=== PATIENT | female | born 1985 | race Caucasian/White ===

== ENCOUNTER 2020-06-14 20:41 | Inpatient (IN) | payer OTHER ==
[~2020-06-14] VITALS: Ht 172.7 cm; Wt 126.6 kg
--- NOTE | ~2020-06-14 | CON ---
[address] [address] CONSULTATION Name: JADA SILVESTRE Room: [address] IN .R.#: [id number] Admission: 06/14/20 Attend Phys: Ozzy Godinez MD Discharge: Date of : 87 Report #: [id number] THIS REPORT FOR: //name// cc: Jessica Higgins MD, Melissa MD ~ DATE OF SERVICE: 06/19/2020 REQUESTING PHYSICIAN: Dr. Ozzy Godinez INDICATION FOR CONSULTATION: COVID-19 with hypoxia. HISTORY OF PRESENT ILLNESS: A 34-year-old female. She is a lifetime nonsmoker. She does have a history of hypertension. She does have morbid obesity with a body mass index elevated to 58.6. It appears likely to me that she has previously undiagnosed obstructive sleep apnea. At this time, the patient is admitted with a fever. She is admitted with fevers. She was having headaches, coughing as well as increase in shortness of breath for 3 days. The patient also had diarrhea on initial presentation. On initial arrival, the patient was on 2 liters oxygen. This was quickly titrated down to room air; however, yesterday there was again an increase in oxygen needs and by last night the patient was requiring 4 liters of oxygen to maintain O2 saturation in the low 90s and therefore, I was consulted. The patient does report having had increase in shortness of breath as well as coughing yesterday. She reports that these symptoms are already better today. The patient has also been titrated down to 2 liters oxygen via nasal cannula at this time. She does have some swelling of lower extremities. The patient has had sleep complaints, which are at baseline. The patient answers to the negative for 12 questions for review of systems except as mentioned above. PAST MEDICAL HISTORY: Hypertension, morbid obesity with a body mass index of 59. CURRENT MEDICATIONS: List in [facility] reviewed. HOME MEDICATIONS: List in [facility] reviewed. SOCIAL HISTORY: Lifetime nonsmoker. No known history of heavy alcohol use or illegal drug use. ALLERGIES: THE PATIENT IS REPORTED TO HAVE HAD ANAPHYLAXIS WITH PENICILLINS IN THE PAST. SHE ALSO REPORTED TO BE ALLERGIC TO LATEX, THERE IS A QUESTIONABLE ALLERGY TO FENTANYL. FAMILY HISTORY: There [place] [address] CONSULTATION Name: JADA SILVESTRE Room: [address]#: [id number] Admission: 06/14/20 Attend Phys: Ozzy Godinez MD Discharge: Date of : 87 Report #: [id number] PHYSICAL EXAMINATION: GENERAL: She is alert, awake and oriented, does not appear to be in any distress at this time. VITAL SIGNS: Has a pulse of 91 and a blood pressure of 139/64, respiratory rate is 18. She is on 2 liters nasal cannula, saturating 93%. She did have a fever up to 38.5 last night. She is afebrile now. HEENT: Head is normocephalic and atraumatic. NECK: Does not show raised JVP. CHEST: Breath sounds bilaterally equal, decreased. I do not hear any added sounds. HEART: Regular, no murmur. ABDOMEN: Soft and nontender. EXTREMITIES: Lower extremities showed trace edema, no calf tenderness. SKIN: Dry and intact. NEUROLOGICAL: Moves all extremities bilaterally equally and spontaneously with no focal deficit identified. LABORATORY DATA: The patient's CBC as well as chemistries last performed yesterday afternoon in [facility] reviewed. Arterial blood gas consistent with acute respiratory insufficiency in [facility] reviewed. COVID-19 screen was positive. Urinalysis in [facility] reviewed. ASSESSMENT AND PLAN: 1. Acute respiratory insufficiency secondary to COVID-19. Continue to titrate oxygen. It appears to me that the patient has underlying obstructive sleep apnea. Therefore, she would likely benefit from BiPAP while asleep. I discussed with the patient, she appeared reluctant, also the patient currently is not in a negative pressure room. Therefore, I decided for now to hold off in case the patient's condition worsens, I recommend having a low threshold of transferring her to a negative pressure room and starting BiPAP while asleep. 2. COVID-19, I agree with Decadron as well as remdesivir as currently ordered. Would hold off on convalescent plasma for now, we certainly could consider the same in case the patient's condition worsens. I recommend following LFTs. 3. Pulmonary infiltrates. The patient is on Zithromax. I agree with the same. She did have a fever last night; however, she is feeling better now. Therefore, I decided not to broaden antibiotic coverage at this time. Should she have sputum production I would recommend sending off a sputum in case the patient's condition worsens, we certainly could broaden coverage later. 4. Mild fluid overload. We will go ahead and give her a dose of Lasix with potassium, will also add magnesium to yesterday's labs. If low, will give her magnesium as well. 5. Edema/evaluation for thromboembolic phenomena/elevated D-dimer. I agree with Lovenox at the dose ordered by Dr. Quiles. I would also like to do venous Dopplers. We will repeat the D-dimer tomorrow to follow trend. 6. Atelectasis. I feel there is a component of this as well. I ordered [address] [address] CONSULTATION Name: JADA SILVESTRE Room: [place] [address] ADM IN [facility].#: [id number] Admission: 06/14/20 Attend Phys: Ozzy Godinez MD Discharge: Date of : 87 Report #: [id number] incentive spirometry if the patient is able to ambulate to chair I would encourage the same. By: [id number] Grant MD /nt
[~2020-06-14 20:41] MED LIST: CLEOCIN HCL150 MG PO; ULTRAM 50MG TAB50 MG PO
[2020-06-14 20:48] VITALS: BP 132/113
[2020-06-14 21:42] LABS: INFLUENZA A ANTIGEN Negative (Negative); INFLUENZA B ANTIGEN Negative (Negative)
[2020-06-14] MEDS ORDERED: PROMETHAZINE-C473 ML PO (21:52)
[2020-06-14] MEDS ORDERED: MEDROLDOSEPACK PO (21:52)
[2020-06-14 22:13] LABS: BE -1.6 mmol/L (-2 to +3); PO2 68.9 mmHg (75.0-100.0); pH 7.435 (7.340-7.450)
[2020-06-14 23:09] LABS: ABSOLUTE LYMPHOCYTES 1.2 thou/uL (0.8-5.3); ABSOLUTE MONOCYTES 0.6 thou/uL (0.0-1.2); ABSOLUTE NEUTROPHILS 3.7 thou/uL (1.6-8.1); BASOPHILS 0.3 %; EOSINOPHILS 0.2 %; HEMATOCRIT 45.8 % (37.0-47.0); HEMOGLOBIN 15.8 gm/dL (12.0-15.0); LYMPHOCYTES 21.4 %; MCH 28.9 pg (26.0-34.0); MCHC 34.5 g/dL (28.0-37.0); MCV 83.7 fL (80.0-100.0); MONOCYTES 10.2 %; NUCLEATED RBCS 0 /100WBC; PLATELET COUNT* 146 thou/uL (150-400); POLYS 67.9 %; RBC 5.47 mil/uL (4.20-5.00); RDW-CV 13.6 % (10.5-14.5); WBC 5.4 thou/uL (4.0-11.0)
[2020-06-14 23:12] LABS: CALCIUM 8.7 mg/dL (8.5-10.1); POTASSIUM 3.7 mmol/L (3.5-5.1)
[2020-06-14 23:17] LABS: ALBUMIN 3.7 g/dL (3.4-5.0); TOTAL BILIRUBIN 0.6 mg/dL (<0.1-1.0); TOTAL PROTEIN 7.8 g/dL (6.4-8.2)
[2020-06-15] VITALS: BP 135/75
[2020-06-15 00:01] VITALS: BP 131/72
[2020-06-15 04:42] VITALS: BP 128/79
[2020-06-15 08:00] VITALS: BP 150/77
--- NOTE | 2020-06-15 11:13 | EKG ---
[place] [address] ELECTROCARDIOGRAM REPORT Name: JADA SILVESTRE Room: [place] [address] ADM IN [facility].#: [id number] Admission: 06/14/20 Attend Phys: Ozzy Godinez, Discharge: Date of : 87 Date of Service: 06/14/20 2226 Report #: [id number] THIS REPORT FOR: //name// [facility] ED Test Date: 2020-06-14 Test Time: 22:26:18 Pat Name: JADA SILVESTRE Department: Room: [facility] Gender: F Mobile Application Architect: PHILLIP : 1985 Requested By: Marilu Mullen Order Number: [id number] MD: Jorge A Corrigan Measurements Intervals [place] Rate: 128 P: 46 LA: 161 QRS: 3 QRSD: 85 T: QT: 314 QTc: 459 Interpretive Statements Sinus tachycardia Borderline T wave abnormalities Baseline wander in lead(s) III,V3,V6 No previous ECG available for comparison Electronically Signed On 06-15-2020 11:13:00 CDT by Jorge A Corrigan [email or web address] <ELECTRONICALLY SIGNED> By: Jorge A Corrigan MD, FACC 06/15/20 1113 Jorge A Corrigan MD, [facility] /EPI
[2020-06-15 13:23] VITALS: BP 140/84
[2020-06-15 16:00] VITALS: BP 136/75
[2020-06-16] VITALS: BP 122/83
[2020-06-16 04:00] VITALS: BP 131/59
[2020-06-16 08:00] VITALS: BP 137/81
[2020-06-16] MEDS ORDERED: VITAMIN D325 MCG PO (09:49)
[2020-06-16] MEDS ORDERED: FISH OIL 1,001000 M2 PO (09:49)
[2020-06-16] MEDS ORDERED: VITAMIN C1000 MG PO (09:50)
[2020-06-16] MEDS ORDERED: TESSALON PERLE100 M1 PO (09:50)
[2020-06-16 14:28] VITALS: BP 113/56
[2020-06-16 15:34] LABS: MCH 28.6 pg (26.0-34.0); MCHC 33.9 g/dL (28.0-37.0); MCV 84.2 fL (80.0-100.0); MPV 7.7 fl. (7.2-11.1); RBC 4.63 mil/uL (4.20-5.00); RDW-CV 13.6 % (10.5-14.5); WBC 5.7 thou/uL (4.0-11.0)
[2020-06-16 15:36] LABS: HEMOGLOBIN 13.2 gm/dL (12.0-15.0)
[2020-06-16 15:48] LABS: CALCIUM 8.2 mg/dL (8.5-10.1); POTASSIUM 3.5 mmol/L (3.5-5.1); TOTAL BILIRUBIN 0.5 mg/dL (<0.1-1.0); TOTAL PROTEIN 6.6 g/dL (6.4-8.2)
[2020-06-16 16:00] VITALS: BP 101/64
[2020-06-17] VITALS: BP 132/77
[2020-06-17 04:00] VITALS: BP 107/58
[2020-06-17 08:00] VITALS: BP 114/68
[2020-06-17 12:05] VITALS: BP 154/86
[2020-06-17 16:27] VITALS: BP 120/72
[2020-06-17 20:10] VITALS: BP 133/78
[2020-06-18] VITALS: BP 119/71
[2020-06-18 04:00] VITALS: BP 149/91
[2020-06-18 08:00] VITALS: BP 123/73
[2020-06-18 12:00] VITALS: BP 136/87
[2020-06-18 15:56] LABS: ABSOLUTE LYMPHOCYTES 1.1 thou/uL (0.8-5.3); ABSOLUTE MONOCYTES 0.3 thou/uL (0.0-1.2); ABSOLUTE NEUTROPHILS 3.8 thou/uL (1.6-8.1); BASOPHILS 0.3 %; EOSINOPHILS 0.1 %; HEMATOCRIT 37.5 % (37.0-47.0); HEMOGLOBIN 12.6 gm/dL (12.0-15.0); MCH 28.4 pg (26.0-34.0); MCHC 33.5 g/dL (28.0-37.0); MCV 84.8 fL (80.0-100.0); MONOCYTES 5.5 %; MPV 7.5 fl. (7.2-11.1); NUCLEATED RBCS 0 /100WBC; PLATELET COUNT* 179 thou/uL (150-400); POLYS 73.1 %; RBC 4.43 mil/uL (4.20-5.00); RDW-CV 13.9 % (10.5-14.5); WBC 5.3 thou/uL (4.0-11.0)
[2020-06-18 16:00] VITALS: BP 140/82
[2020-06-18 16:15] LABS: ALBUMIN 2.7 g/dL (3.4-5.0); CALCIUM 8.1 mg/dL (8.5-10.1); CREATININE 0.8 mg/dL (0.6-1.3); POTASSIUM 3.7 mmol/L (3.5-5.1); TOTAL BILIRUBIN 0.4 mg/dL (<0.1-1.0); TOTAL PROTEIN 6.7 g/dL (6.4-8.2)
[2020-06-18 20:20] VITALS: BP 113/64
[2020-06-19] VITALS: BP 133/76
[2020-06-19 04:00] VITALS: BP 141/84
[2020-06-19 08:00] VITALS: BP 125/61
[2020-06-19 11:15] LABS: URINE BILIRUBIN NEGATIVE (Negative); URINE BLOOD NEGATIVE (Negative); URINE CLARITY CLEAR; URINE COLOR YELLOW; URINE GLUCOSE-RANDOM 2+ (Negative); URINE LEUKOCYTES-REFLEX NEGATIVE (Negative); URINE NITRITE-REFLEX NEGATIVE (Negative); URINE PROTEIN TRACE (Negative); URINE SPECIFIC GRAVITY 1.025 (1.005-1.030); URINE UROBILINOGEN 0.2 E.U./dl (0.2-1.0)
[2020-06-19 11:18] LABS: ACETEST (KETONE CONFIRMATORY) ND (Negative); URINE KETONES 3+ (Negative)
[2020-06-19 11:19] LABS: BACTERIA-REFLEX 1-9 Few /HPF (None Seen); CASTS None Seen /LPF (None Seen); CRYSTALS None Seen /LPF (None Seen); SQUAMOUS 0-3 Few /LPF (0-3); URINE RBC 0-2 Rare /HPF (0-2); URINE WBC-REFLEX 0-5 Rare /HPF (0-5)
[2020-06-19 12:00] VITALS: BP 138/64
[2020-06-19 16:00] VITALS: BP 151/82
[2020-06-19 21:01] VITALS: BP 128/68
[2020-06-20] VITALS: BP 129/77
[2020-06-20 04:00] VITALS: BP 107/62
[2020-06-20 04:33] LABS: HEMATOCRIT 40.1 % (37.0-47.0); HEMOGLOBIN 13.5 gm/dL (12.0-15.0); MCH 28.4 pg (26.0-34.0); MCHC 33.8 g/dL (28.0-37.0); MCV 84.2 fL (80.0-100.0); MPV 8.1 fl. (7.2-11.1); NUCLEATED RBCS 0 /100WBC; RBC 4.76 mil/uL (4.20-5.00); RDW-CV 13.9 % (10.5-14.5); WBC 5.3 thou/uL (4.0-11.0)
[2020-06-20 05:30] LABS: ALBUMIN 2.7 g/dL (3.4-5.0); CALCIUM 8.8 mg/dL (8.5-10.1); CREATININE 0.8 mg/dL (0.6-1.3); MAGNESIUM 1.9 mg/dL (1.8-2.4); POTASSIUM 3.5 mmol/L (3.5-5.1); TOTAL BILIRUBIN 0.4 mg/dL (<0.1-1.0); TOTAL PROTEIN 7.1 g/dL (6.4-8.2)
[2020-06-20 05:42] LABS: PLATELET COUNT* 257 thou/uL (150-400)
[2020-06-20 06:19] LABS: ABSOLUTE LYMPHOCYTES 1.2 thou/uL (0.8-5.3); ABSOLUTE MONOCYTES 0.3 thou/uL (0.0-1.2); ABSOLUTE NEUTROPHILS 3.8 thou/uL (1.6-8.1); ANISOCYTOSIS 1+; MYELOCYTES 1 %; PLATELET ESTIMATE ADEQUATE; POIKILOCYTOSIS 1+
[2020-06-20 12:00] VITALS: BP 115/70
[2020-06-20 16:00] VITALS: BP 125/51
[2020-06-20 19:40] VITALS: BP 137/73
[2020-06-21] VITALS: BP 140/80
[2020-06-21 04:00] VITALS: BP 124/67
[2020-06-21 08:00] VITALS: BP 155/94
[2020-06-21 12:14] VITALS: BP 155/94
== END 2020-06-21 14:47 | disposition home or self-care (01) | DRG 177 ==
LOC: M.ERS 20:41 → M.2W 22:40 → M.TBA-ER 22:40 → M.2W 23:50
PROVIDERS: Internal Medicine; Internal Medicine Critical Care Medicine; Personal Emergency Response Attendant; ADMIT Internal Medicine; ATTEND Internal Medicine
PROC: XW033E5 Introduction of Remdesivir Anti-infective into Peripheral Vein, Percutaneous Approach, New Technology Group 5 (ICD-10-PCS; principal; 2020-06-18)
DX: U07.1 COVID-19 (principal); J12.89 Other viral pneumonia; J96.01 Acute respiratory failure with hypoxia; Z68.41 Body mass index [BMI] 40.0-44.9, adult; R65.10 Systemic inflammatory response syndrome (SIRS) of non-infectious origin without acute organ dysfunction; E66.01 Morbid (severe) obesity due to excess calories; I10 Essential (primary) hypertension; Z79.899 Other long term (current) drug therapy; Z88.0 Allergy status to penicillin; Z88.8 Allergy status to other drugs, medicaments and biological substances; Z91.040 Latex allergy status